=== PATIENT | female | born 1975 | race Asian ===

== ENCOUNTER 2023-08-31 07:50 | Outpatient (CLI) | payer OTHER, SELFPAY | END 2023-08-31 07:51 | disposition home or self-care (01) | PROVIDERS: PCP Family Medicine; Visit Provider Family Medicine | DX: D64.9 Anemia, unspecified (principal); Z13.220 Encounter for screening for lipoid disorders; N92.6 Irregular menstruation, unspecified; R53.83 Other fatigue | CPT/HCPCS: 80053; 80061; 82607; 82728; 83540; 83550; 84443 ==

== ENCOUNTER 2023-09-20 09:32 | Outpatient (CLI) | payer OTHER, SELFPAY ==
--- NOTE | 2023-09-20 10:45 | W.ANESCHARGE ---
Anesthesia Charges Start Date/Time Anesthesia Start Date: 09/20/23 Anesthesia Start Time: 10:25 Stop Date/Time Anesthesia Stop Date: 09/20/23 Anesthesia Stop Time: 10:43
--- NOTE | 2023-09-20 11:53 | W.ANESCHARGE ---
Anesthesia Charges Start Date/Time Anesthesia Start Date: 09/20/23 Anesthesia Start Time: 10:25 Stop Date/Time Anesthesia Stop Date: 09/20/23 Anesthesia Stop Time: 10:43
== END 2023-09-20 09:33 | disposition home or self-care (01) ==
LOC: OP CLINIC 09:32
PROVIDERS: PCP Family Medicine; Visit Provider Internal Medicine
DX: Z12.11 Encounter for screening for malignant neoplasm of colon (principal); K64.8 Other hemorrhoids
CPT/HCPCS: 00812; 45378; J2704

== ENCOUNTER 2023-11-30 16:23 | Outpatient (CLI) | payer OTHER, SELFPAY ==
--- NOTE | 2023-11-30 16:40 | MM_ITS ---
Final Report Patient: BELEN WALLACE Facility:?[facility] Patient ID:?[id number] :?[id number] Study:?XRay Breast Bilateral 3D W/CAD-11/30/2023 5:40:13 PM Ordering Physician:Judie Alvarez Final Report: BILATERAL SCREENING MAMMOGRAM WITH COMPUTER-AIDED DETECTION AND TOMOSYNTHESIS TECHNIQUE: CC and MLO views were obtained. These mammographic images have been obtained using full-field digital technique. These mammographic images were interpreted with the benefit of computer-aided detection. Breast Tomosynthesis was used in this interpretation. COMPARISON FILM: Baseline. FINDINGS: The breasts are extremely dense, which lowers the sensitivity of mammography. IMPRESSION: There is no radiographic evidence for malignancy. ASSESSMENT: BI-RADS Category 2: Benign RECOMMENDATION: Routine screening mammogram in 1 year. A lay language report of this examination will be provided to the patient. Leonard Vu M.D. Diagnostic Radiologist [email or web address] DSM/sp R& Transcribed: 4:30 p.m. SP/Dictated by: Leonard Vu MD @ 12/01/2023 10:55:00 AM (Electronic Signature)
== END 2023-11-30 16:24 | disposition home or self-care (01) ==
LOC: MAMMO 16:23
PROVIDERS: PCP Family Medicine; Visit Provider Family Medicine
DX: Z12.31 Encounter for screening mammogram for malignant neoplasm of breast (principal); R92.2 Inconclusive mammogram
CPT/HCPCS: 77063; 77067

== ENCOUNTER 2024-08-29 07:40 | Outpatient (CLI) | payer OTHER, SELFPAY | END 2024-08-29 07:41 | disposition home or self-care (01) | PROVIDERS: PCP Family Medicine; Referring Provider Family Medicine; Visit Provider Family Medicine | DX: N92.6 Irregular menstruation, unspecified (principal); Z13.6 Encounter for screening for cardiovascular disorders; Z13.1 Encounter for screening for diabetes mellitus | CPT/HCPCS: 80061; 82947; 84443 ==

== ENCOUNTER 2024-09-05 08:04 | Outpatient (CLI) | payer OTHER, SELFPAY ==
[2024-09-07 04:34] LABS: HPV Source Cervix; HPV, High Risk by TMA Not Detected
== END 2024-09-05 08:05 | disposition home or self-care (01) ==
PROVIDERS: PCP Family Medicine; Visit Provider Family Medicine
DX: D64.9 Anemia, unspecified (principal); Z12.4 Encounter for screening for malignant neoplasm of cervix; Z11.51 Encounter for screening for human papillomavirus (HPV)
CPT/HCPCS: 87624; 87625; 88141; 88142

== ENCOUNTER 2025-09-11 07:43 | Outpatient (CLI) | payer BC, SELFPAY | END 2025-09-11 07:44 | disposition home or self-care (01) | LOC: NFLDREF 09-13 15:05 | PROVIDERS: PCP Family Medicine; Referring Provider Family Medicine; Visit Provider Family Medicine | DX: D50.9 Iron deficiency anemia, unspecified (principal); Z13.1 Encounter for screening for diabetes mellitus | CPT/HCPCS: 82607; 82728; 82947; 83540; 83550 ==